=== PATIENT | male | born 1955 | race Asian ===

== ENCOUNTER 2021-11-24 08:01 | Outpatient (CLI) | payer MEDICARE | END 2021-11-24 08:02 | disposition home or self-care (01) | LOC: CSHMRI 08:01 | PROVIDERS: ATTEND Family Medicine | DX: M54.16 Radiculopathy, lumbar region (principal); M47.816 Spondylosis without myelopathy or radiculopathy, lumbar region; M48.061 Spinal stenosis, lumbar region without neurogenic claudication; M51.37 Other intervertebral disc degeneration, lumbosacral region; M48.07 Spinal stenosis, lumbosacral region | CPT/HCPCS: 72148 ==

== ENCOUNTER 2023-12-01 08:18 | Outpatient (CLI) | payer MEDICARE, OTHER ==
[2023-12-01] MEDS ORDERED: Iopamidol 370 76% 100 ML VIAL ONE (12:16)
== END 2023-12-01 08:19 | disposition home or self-care (01) ==
LOC: CSHCT 08:18
PROVIDERS: ATTEND Student in an Organized Health Care Education/Training Program
DX: I77.9 Disorder of arteries and arterioles, unspecified (principal); I65.23 Occlusion and stenosis of bilateral carotid arteries; E04.1 Nontoxic single thyroid nodule
CPT/HCPCS: 70498

== ENCOUNTER 2025-01-02 14:37 | Outpatient (CLI) | payer MEDICARE | END 2025-01-02 14:38 | disposition home or self-care (01) | LOC: CSHULT 14:37 | PROVIDERS: ATTEND Family Medicine | DX: E04.1 Nontoxic single thyroid nodule (principal); E04.2 Nontoxic multinodular goiter | CPT/HCPCS: 76536 ==